=== PATIENT | female | born 1950 | race Caucasian/White ===

== ENCOUNTER → 2017-10-22 | Outpatient (CLI) | payer BC ==
[~2017-10-22] MED LIST: ATV5 PO; LISI-461 PO; MULT-506 PO; OXYC1TAB3 PO; ZFRODT4 SL
--- NOTE | 2017-10-24 08:13 | MAMMOGRAPHY REPORT ---
BILATERAL DIGITAL SCREENING MAMMOGRAM TOMOSYNTHESIS WITH CAD: 10/22/2017 CLINICAL HISTORY: Routine screening. Patient has no complaints. TECHNIQUE: Breast tomosynthesis in addition to standard 2D mammography was performed. Current study was also evaluated with a Computer Aided Detection (CAD) system. COMPARISON: Comparison is made to exams dated: 09/17/2016 mammogram, 09/11/2016 mammogram, 08/30/2015 mammogram, 07/08/2014 mammogram, 05/03/2013 mammogram, and 04/20/2012 mammogram - [facility] enter. BREAST COMPOSITION: The tissue of both breasts is almost entirely fatty. FINDINGS: There are stable punctate microcalcifications in the left breast. The parenchymal pattern is similar to prior mammograms. No suspicious mass, architectural distortion or cluster of suspicio us microcalcifications is seen. IMPRESSION: ACR BI-RADS CATEGORY 1: NEGATIVE There is no mammographic evidence of malignancy. A 1 year screening mammogram is recommended. The pa tient will receive written notification of the results. Approximately 10% of breast cancers are not detected with mammography. A negative mammographic report should not delay biopsy if a clinically suggestive mass is present. Maribel Triana M.D. ay/:10/22/2017 16:54:19 Data Network Architect: Elizabeth ACEVEDO(J Luis)(Maurice), [facility] letter sent: Normal 1/2 BI-RADS Code: ACR BI-RADS Category 1: Negative
== END | disposition home or self-care (01) ==
LOC: C.MAMM 11:58
PROVIDERS: ATTEND Family Medicine
DX: Z12.31 Encounter for screening mammogram for malignant neoplasm of breast (principal)

== ENCOUNTER 2021-06-15 14:17 | Inpatient (IN) ==
--- NOTE | 2021-06-15 14:44 | Emergency Department Note ---
ED Visit Note This patient was seen in concert with Dr. Oliva and we discussed and agreed upon the history, physical, assessment and plan. See attending's note for details. Resident Activity Tracking Resident Involvement: Resident Care Provided Care Provided: Adult ED
--- NOTE | 2021-06-15 15:03 | Emergency Department Note ---
Impression & Plan Peptic ulcer disease, Epigastric abdominal pain, Hypertension ED Provider Note NAME: CRISTINA WEBSTER AGE: 71 SEX: F ARRIVES VIA: Walk-In INFORMANT: Patient, ED PROVIDER(S): Vel Oliva MD CHIEF COMPLAINT: Abdominal pain to back with nausea. PLAN: Disposition: Admit MEDICAL DECISION MAKING: The patient is a pleasant 71-year-old woman with a past medical history of hypertension, history of left bundle branch block dating back to 2006 or longer who presents emergency department with epigastric pain radiating to her back with associated nausea that began last night. Denies any history of similar symptoms in the past. She denies any history of pattern of acid reflux. She takes ibuprofen every now and then for pain not daily. She denies any regular alcohol use. She denies eating any thing particularly new yesterday. Otherwise patient denies any shortness of breath,, cough, congestion, diarrhea or urinary symptoms. EKG demonstrates left bundle branch block that is similar to prior and no sg arbossa criteria. Chest x-ray negative for acute cardiopulmonary process no free air. WBC, H/H and platelets within normal limits. Chemistry without metabolic acidosis. Electrolytes and LFTs without significant abnormality. Troponin negative/undetectable. Lipase is not elevated. COVID-19 PCR was negative. The patient's hypertension CTA of the chest and abdomen pelvis was performed. There is a negative for acute aortic pathology or PE however does demonstrate "diffuse gastric wall thickening with a focal abnormal collection of gas within the wall of the gastric body", which likely represents a gastric ulceration with a small focus of this gas appears to be extraluminal suggestive of m icroperforation/contained perforation. Resident, Dr. Nieves, reviewed the CT findings with the patient who was feeling better after IV fluid hydration and Pepcid and she was in agreement with plan for admission per surgery recommendations. Resident Nieves also discussed the case with general surgery on- call, Dr. Butler, who evaluated the patient at the bedside and will admit the patient for further management. This patient was managed with the assistance of resident, Dr. Oralia Nieves. I discussed the case with the resident, examined the patient, and confirm the findings and plan as documented in this note. Triage Nursing notes reviewed and agree them. Prior medical records reviewed Vital Signs: reviewed and remarkable for no significant abnormalities Differential diagnosis: Appendicitis, ovarian cyst, ovarian torsion, ectopic , TOA, PID, infections, diverticulitis, UTI, obstruction, mesenteric ischemia, aortic pathology, inflammatory bowel disease, renal colic, PUD, pancreatitis, biliary pathology, hernia, volvulus, constipation, as well as other pathologies. ER treatment provided: See below. Diagnostics interpreted by me: ECG: Normal sinus rhythm, 67 bpm, no ectopy, left bundle branch block, no sgarbossa criteria. Left bundle branch block similar to 2008. Cardiac Monitoring: An order for continuous cardiac monitoring was placed and demonstrated Normal sinus rhythm, 67 bpm, no ectopy. Laboratory studies: See below Imaging studies: See below Consultation(s): General surgery on-call, Dr. Butler. HPI: The patient is a pleasant 71-year-old woman with a past medical history of hypertension, history of left bundle branch block dating back to 2006 or longer who presents emergency department with epigastric pain radiating to her back with associated nausea that began last night. Denies any history of similar symptoms in the past. She denies any history of pattern of acid reflux. She takes ibuprofen every now and then for pain not daily. She denies any regular alcohol use. She denies eating any thing particularly new yesterday. Otherwise patient denies any shortness of breath,, cough, congestion, diarrhea or urinary symptoms. ROS: See above HPI for pertinent positives & negatives. A total of 10 systems reviewed and were otherwise negative. PAST MEDICAL HISTORY:See Below PAST SURGICAL HISTORY:See Below FAMILY HISTORY:See Below SOCIAL HISTORY:See Below HOME MEDICATIONS:See Below ALLERGIES:See Below VITALS:See Below PHYSICAL EXAMINATION: GENERAL: Awake, alert, uncomfortable appearing, in no distress HENT: Normocephalic, atraumatic. Oropharynx with dry mucous membranes and otherwise unremarkable. EYES: Normal conjunctiva. Sclera non-icteric. NECK: Supple. No nuchal rigidity. FROM. No JVD. RESPIRATORY: Clear to auscultation. CARDIAC: Regular rate, normal rhythm. Extremities warm and well perfused. Pulses equal. ABDOMEN: Soft, non-distended. Mild epigastric tenderness to palpation. No rebound or guarding. No masses. RECTAL: Deferred. MUSCULOSKELETAL: Chest examination reveals no tenderness. The back is symmetrical on inspection without obvious abnormality. There is no CVA tenderness to palpation. No joint edema. LOWER EXTREMITIES: Calves are equal size bilaterally and non-tender. No edema. N o discoloration. NEURO: Normal sensorium. No sensory or motor deficits noted. SKIN: No rash or jaundice noted. Vel Oliva MD Past Med/Surg History Medical History Hypertension Left bundle branch block Social History Smoking Status: Never smoker Second Hand Exposure: Yes ( smokes pipe); Do You Dip or Chew Tobacco: No; Hx Alcohol Use: No Hx Substance Use: No Preferred Language: Sinhala Communication Ability: Effective Molder Meat Required: No Beliefs That Will Affect Care: None Current Living Situation: Spouse Other Information That Helps Us Care for You: No Feels Safe at Home: Yes Safety Concerns: Feels Safe At This Time Assistive Devices: Glasses Allergies Allergies Allergy/AdvReac Type Severity Reaction Status Date / Time latex Allergy Intermediate Rash Unverified 06/15/21 19:09 Penicillins Allergy Mild Unknown Unverified 06/15/21 19:09 seafood Allergy Severe Anaphylaxis Uncoded 06/15/21 19:09 Home Meds Home Medications Medication Instructions Recorded Confirmed albuterol sulfate 90 mcg/actuation 2 puff INHALATION QID PRN 06/15/21 06/15/21 aerosol inhaler calcium 500 mg tablet 500 mg PO QAM 06/15/21 06/15/21 lisinopril 20 mg tablet 20 mg PO QAM 06/15/21 06/15/21 turmeric 400 mg capsule 400 mg PO QAM 06/15/21 06/15/21 Results & Data (ED) Vital Signs Vital Signs - 24 hr 06/15/21 14:21 06/15/21 16:04 06/15/21 18:00 Temperature 36.2 C L Temperature Source Temporal Artery Scan Pulse Rate 77 Pulse Rate [Apical] 56 L 71 Respiratory Rate 20 18 18 Respiratory Effort / Characteristics Non-Labored Spontaneous Non-Labored Non-Labored Respiratory Depth Normal Normal Normal Respiratory Pattern Regular Blood Pressure 191/97 H Blood Pressure [Left Arm] 176/86 H 168/104 H Blood Pressure Mean 128 Blood Pressure Mean [Left Arm] 116 125 Blood Pressure Position Sitting Pulse Oximetry 99 97 98 Oxygen Delivery Method Room Air Room Air Room Air Sepsis Recent Fever Within 48 Hours No Sepsis New/Unexplained Change in Mental Status N/A Sepsis Action Taken by Nursing No Action Required Laboratory Data Attestation: I reviewed the patient's lab results. Result diagrams: 06/15/21 14:55 06/15/21 14:55 Lab Results 06/15/21 06/15/21 06/15/21 Range/Units 14:55 14:55 15:23 WBC 7.78 (4.8-10.8) K/uL RBC 4.44 (4.2-5.4) M/uL Hgb 13.7 (12.0-16.0) g/dL Hct 41.1 (37-47) % MCV 92.6 (80-100) fL MCH 30.9 (25-34) pg MCHC 33.3 (32-36) g/dL RDW Std Deviation 46.7 H (36.4-46.3) fL RDW Coeff of Lenore 13.8 (11.5-14.5) % Plt Count 287 (130-400) K/uL MPV 9.3 (7.4-10.4) fL Immature Gran % (Auto) 0.0 % Neut % (Auto) 86.7 % Lymph % (Auto) 9.1 % [place] % (Auto) 3.6 % Eos % (Auto) 0.3 % Baso % (Auto) 0.3 % Neut # (Auto) 6.75 H (1.4-6.5) K/uL Lymph # (Auto) 0.71 L (1.2-3.4) K/uL [place] # (Auto) 0.28 (0.11-0.59) K/uL Eos # (Auto) 0.02 (0-0.5) K/uL Baso # (Auto) 0.02 (0-0.2) K/uL Immature Gran # (Auto) 0.00 (0.00-0.02) K/uL Sodium 138 (136-145) mmol/L Potassium 4.1 (3.5-5.1) mmol/L Chloride 105 (98-107) mmol/L Carbon Dioxide 28 (21-32) mmol/L Anion Gap 6.0 (3-11) BUN 18 (7-18) mg/dl Creatinine 0.97 (0.6-1.2) mg/dl Est Cr Clr Drug Dosing 40.9 ml/min Est GFR ( Amer) 67.2 ml/min Est GFR (Non-Af Amer) 57.9 ml/min BUN/Creatinine Ratio 18.1 (10-20) Glucose 116 H (70-99) mg/dl Calcium 9.0 (8.5-10.1) mg/dl Phosphorus 2.9 (2.5-4.9) mg/dl Magnesium 2.1 (1.8-2.4) mg/dl Total Bilirubin 0.5 (0.2-1) mg/dl AST 29 (15-37) U/L ALT 32 (12-78) U/L Alkaline Phosphatase 41 L (45-117) U/L Troponin I < 0.015 (0-0.045) ng/ml Total Protein 6.8 (6.4-8.2) gm/dl Albumin 3.6 (3.4-5.0) gm/dl Globulin 3.2 (2.5-4.0) gm/dl Albumin/Globulin Ratio 1.1 (0.9-2) Lipase 138 (73-393) U/L Specimen Hemolysis COVID-19 Eval Order Covid19 at [facility] SARS-CoV-2 (PCR) (Negative) 06/15/21 Range/Units 15:23 WBC (4.8-10.8) K/uL RBC (4.2-5.4) M/uL Hgb (12.0-16.0) g/dL Hct (37-47) % MCV (80-100) fL MCH (25-34) pg MCHC (32-36) g/dL RDW Std Deviation (36.4-46.3) fL RDW Coeff of Lenore (11.5-14.5) % Plt Count (130-400) K/uL MPV (7.4-10.4) fL Immature Gran % (Auto) % Neut % (Auto) % Lymph % (Auto) % [place] % (Auto) % Eos % (Auto) % Baso % (Auto) % Neut # (Auto) (1.4-6.5) K/uL Lymph # (Auto) (1.2-3.4) K/uL [place] # (Auto) (0.11-0.59) K/uL Eos # (Auto) (0-0.5) K/uL Baso # (Auto) (0-0.2) K/uL Immature Gran # (Auto) (0.00-0.02) K/uL Sodium (136-145) mmol/L Potassium (3.5-5.1) mmol/L Chloride (98-107) mmol/L Carbon Dioxide (21-32) mmol/L Anion Gap (3-11) BUN (7-18) mg/dl Creatinine (0.6-1.2) mg/dl Est Cr Clr Drug Dosing ml/min Est GFR ( Amer) ml/min Est GFR (Non-Af Amer) ml/min BUN/Creatinine Ratio (10-20) Glucose (70-99) mg/dl Calcium (8.5-10.1) mg/dl Phosphorus (2.5-4.9) mg/dl Magnesium (1.8-2.4) mg/dl Total Bilirubin (0.2-1) mg/dl AST (15-37) U/L ALT (12-78) U/L Alkaline Phosphatase (45-117) U/L Troponin I (0-0.045) ng/ml Total Protein (6.4-8.2) gm/dl Albumin (3.4-5.0) gm/dl Globulin (2.5-4.0) gm/dl Albumin/Globulin Ratio (0.9-2) Lipase (73-393) U/L Specimen Hemolysis COVID-19 Eval Order SARS-CoV-2 (PCR) NEGATIVE (Negative) Administered Medications Lactated Ringer's (Lr) 1,000 mls @ 80 mls/hr IV .[id number] ROLANDO Stop: 07/15/21 19:49 Last Admin: 06/15/21 20:52 Dose: 80 mls/hr Documented by: [id number] Levofloxacin/Dextrose (Levaquin/D5w) 500 mg in 100 mls @ 100 mls/hr IV Q24H ROLANDO Stop: 06/25/21 21:29 Last Infusion: 06/15/21 23:07 Dose: 0 mls/hr Documented by: [id number] Admin: 06/15/21 22:00 Dose: 100 mls/hr Documented by: [id number] Pantoprazole Sodium 40 mg/ (Syringe) 10 mls @ 5 mls/min IV BID ROLANDO Stop: 07/15/21 20:59 Last Admin: 06/15/21 20:52 Dose: 5 mls/min Documented by: [id number] Lisinopril (Lisinopril 10 Mg Tab) 10 mg PO DAILY ROLANDO Stop: 07/15/21 19:49 Last Admin: 06/15/21 20:51 Dose: 10 mg Documented by: [id number] Ondansetron HCl (Ondansetron Inj 2 Mg/Ml 2 Ml Vial) 4 mg IV Q4H PRN PRN Reason: Nausea And Vomiting Stop: 07/15/21 19:49 Last Admin: 06/15/21 20:53 Dose: 4 mg Documented by: [id number] Discontinued Medications Sodium Chloride (Nss 1000ml) 1,000 mls @ 999 mls/hr IV .Q1H1M ONE Stop: 06/15/21 16:05 Last Infusion: 06/15/21 16:33 Dose: 0 mls/hr Documented by: [id number] Admin: 06/15/21 15:18 Dose: 999 mls/hr Documented by: [id number] Famotidine (Pepcid 20mg Iv Push) 20 mg in 5 mls @ 2.5 mls/min IV NOW STA Stop: 06/15/21 15:35 Last Admin: 06/15/21 15:40 Dose: 2.5 mls/min Documented by: [id number] Ioversol (Optiray 320 125ml) 116 ml IV ONCE ONE Stop: 06/15/21 16:15 Last Admin: 06/15/21 16:15 Dose: 116 ml Documented by: [id number] Metoclopramide HCl (Metoclopramide Hcl Inj 5 Mg/Ml 2 Ml Vial) 5 mg IV ONE ONE Stop: 06/15/21 15:35 Last Admin: 06/15/21 15:40 Dose: 5 mg Documented by: [id number] Imaging Data Radiologist's Impression: Chest X-Ray 06/15/21 14:40 XR chest 1V portable CLINICAL HISTORY: epigastric pain COMPARISON STUDY: 11/06/2007 FINDINGS: The cardiac and mediastinal contours are normal. There is no evidence of focal pulmonary consolidation. A linear opacity at the left lung base is felt to represent subsegmental atelectasis/scarring. There is no evidence of failure. No pleural effusions are visualized.[No free intraperitoneal air is visualized. There is a mild thoracolumbar scoliosis. IMPRESSION: No active disease in the chest. ACT 112: Negative or not required by law. Electronically signed by: Ruben Payton M.D. 06/15/2021 3:12 PM Chest CTA 06/15/21 15:32 CT ANGIOGRAPHY OF THE CHEST DISSECTION PROTOCOL CLINICAL HISTORY: Epigastric pain. COMPARISON STUDY: Chest radiograph June 15, 2021. TECHNIQUE: Before and following the IV administration of 116 mL of Optiray, helical axial images of the chest were obtained. Maximal intensity projections and sagittal and coronal reformats were viewed on an independent 3D workstation. IV contrast was administered without complication. Automated exposure control was utilized for the study. A dose lowering technique was utilized adhering to the principles of ALARA. FINDINGS: The caliber of the thoracic aorta is normal. There is no intramural hematoma. No thoracic aortic dissection. The size of the heart is normal. There is no pericardial effusion. No pulmonary emboli are identified. There is no consolidation to suggest pneumonia. No pneumothorax or pleural effusion is noted. Linear opacities reflect atelectasis. There are few small bilateral lower lobe pulmonary nodules, including a 5 mm right lower lobe nodule on image 195 of 325. There is a 3 mm left lower lobe nodule image 214. Abdomen and pelvis will be reported separate. Note is made of wall thickening of the gastric body and antrum better depicted on that exam. There is a gas containing focus within the anterior wall of the gastric body which favors an ulcer with possible contained perforation. There is adjacent infiltration and fluid. Right hepatic lobe cyst is noted. IMPRESSION: 1. No thoracic aortic dissection. 2. No acute process within the chest. 3. Several small bilateral lower lobe pulmonary nodules. These are likely benign. A follow-up chest CT in 6 months to ensure stability is recommended. 4. Gastric wall thickening suggestive of gastritis. Associated defect within the anterior wall of the gastric body favors an ulcer with possible contained perforation. These findings are better depicted on the CTA of the abdomen and pelvis will be reported separately. ACT 112: Negative or not required by law. Electronically signed by: Tay Olivas M.D. 06/15/2021 4:34 PM Abdomen/Pelvis CTA 06/15/21 15:52 CT angio abdomen pelvis w con HISTORY: epigastric pain, rule out dissection TECHNIQUE: Multiaxial CT images of the abdomen and pelvis were performed following the intravenous administration of 116 cc of Optiray 320 to evaluate the abdominal aorta. Maximal intensity projection images were also obtained. COMPARISON STUDY: None. FINDINGS: Moderate disc space narrowing at L5-S1. No fractures within the visualized osseous structures. Diffuse thickening of gastric wall with a focal abnormal collection of gas within the gastric body best seen image 71. This focus of gas measures 1.5 cm and favors a gastric ulceration with a probable small contained perforation. The focus of gas on image 67 appears to be extraluminal. There is mild inflammatory change at the greater curvature of the stomach within the left upper quadrant. A 1.7 cm hypodense lesion within the posterior segment of the right hepatic lobe. This favors a cyst. The gallbladder is unremarkable. Trace subhepatic fluid is noted. The pancreas, spleen, and adrenal glands are unremarkable. The kidneys enhance normally. No hydronephrosis. No retroperitoneal lymphadenopathy. The bladder and uterus are unremarkable. Bilateral tubal ligation clips are noted. Colonic diverticulosis. No evidence for acute diverticulitis. No evidence for bowel obstruction. The visualized appendix is unremarkable. The abdominal aorta, celiac artery, superior mesenteric artery, inferior mesenteric artery, iliac arteries, and bilateral renal arteries are widely patent. No evidence for dissection or aneurysm. IMPRESSION: 1. Diffuse gastric wall thickening with a focal abnormal collection of gas within the wall of the gastric body as described above. This likely represents a gastric ulceration. A small focus of this gas appears to be extraluminal and therefore favors a microperforation/contained perforation. Surgical consultation recommended. 2. No evidence for an aortic dissection. ACT 112: Negative or not required by law. Electronically signed by: Milton Means M.D. 06/15/2021 4:36 PM Discharge Plan Visit Data Chief Complaint: GI Assessment Stated Complaint: UPPER ABD PAIN STARTING INTO BACK,NAUSEA,GAGGING ED Provider: Vel Oliva ED Midlevel Provider: Oralia Nieves Discharge Problem: Peptic ulcer disease, Epigastric abdominal pain, Hypertension Patient Disposition: Admitted As Inpatient Discharge Instructions Interventions: ED Discharge Assessment Last Done: 06/15/21 19:22
[2021-06-15] MEDS ORDERED: SODIUM CHLORIDE 0.9% 1000ML 1,000 ML IV ONE (15:05)
[2021-06-15 15:06] LABS: Basophils # (auto) 0.02 K/uL (0-0.2); Basophils % (auto) 0.3 %; Eosinophils # (auto) 0.02 K/uL (0-0.5); Eosinophils % (auto) 0.3 %; Hematocrit (blood only) 41.1 % (37-47); Hemoglobin 13.7 g/dL (12.0-16.0); Lymphocytes # (auto) 0.71 K/uL (1.2-3.4); Lymphocytes % (auto) 9.1 %; Mean Corpuscular Hemoglobin 30.9 pg (25-34); Mean Corpuscular Hgb Conc 33.3 g/dL (32-36); Mean Corpuscular Volume 92.6 fL (80-100); Mean Platelet Volume 9.3 fL (7.4-10.4); Monocytes # (auto) 0.28 K/uL (0.11-0.59); Monocytes % (auto) 3.6 %; Neutrophils # (auto) 6.75 K/uL (1.4-6.5); Neutrophils % (auto) 86.7 %; Platelet Count 287 K/uL (130-400); RDW Coefficient of Variation 13.8 % (11.5-14.5); RDW Standard Deviation 46.7 fL (36.4-46.3); Red Blood Count 4.44 M/uL (4.2-5.4); White Blood Count 7.78 K/uL (4.8-10.8)
--- NOTE | 2021-06-15 15:14 | XRay Report ---
XR chest 1V portable CLINICAL HISTORY: epigastric pain COMPARISON STUDY: 11/06/2007 FINDINGS: The cardiac and mediastinal contours are normal. There is no evidence of focal pulmonary co nsolidation. A linear opacity at the left lung base is felt to represent subsegmental atelectasis/sca rring. There is no evidence of failure. No pleural effusions are visualized.[No free intraperitoneal air is visualized. There is a mild thoracolumbar scoliosis. IMPRESSION: No active disease in the chest. ACT 112: Negative or not required by law. Electronically signed by: Ruben Payton M.D. 06/15/2021 3:12 PM
[2021-06-15 15:28] LABS: Alanine Aminotransferase 32 U/L (12-78); Albumin Level 3.6 gm/dl (3.4-5.0); Aspartate Aminotransferase 29 U/L (15-37); BUN Creatinine Ratio 18.1 (10-20); Blood Urea Nitrogen 18 mg/dl (7-18); Carbon Dioxide 28 mmol/L (21-32); Chloride 105 mmol/L (98-107); Creatinine Clr Calc Pharmacy 40.9 ml/min; Est GFR (African American) 67.2 ml/min; Est GFR (Non-African American) 57.9 ml/min; Glucose 116 mg/dl (70-99); Lipase 138 U/L (73-393); Magnesium 2.1 mg/dl (1.8-2.4); Potassium 4.1 mmol/L (3.5-5.1); Sodium 138 mmol/L (136-145)
[2021-06-15] MEDS ORDERED: METOCLOPRAMIDE HCL INJ 5 MG/ML 2 ML VIAL IV ONE (15:34)
[2021-06-15] MEDS ORDERED: FAMOTIDINE 20MG IV PUSH 20 MG/5 ML SYR IV STA (15:34)
[2021-06-15 15:35] LABS: Albumin Globulin Ratio 1.1 (0.9-2); Alkaline Phosphatase 41 U/L (45-117); Bilirubin,Total 0.5 mg/dl (0.2-1); Globulin 3.2 gm/dl (2.5-4.0); Phosphorus 2.9 mg/dl (2.5-4.9); Total Protein 6.8 gm/dl (6.4-8.2); Troponin I < 0.015 ng/ml (0-0.045)
[2021-06-15] MEDS ORDERED: OPTIRAY 320 125ml IV ONE (16:14)
--- NOTE | 2021-06-15 16:36 | CT Scan Report ---
CT ANGIOGRAPHY OF THE CHEST DISSECTION PROTOCOL CLINICAL HISTORY: Epigastric pain. COMPARISON STUDY: Chest radiograph June 15, 2021. TECHNIQUE: Before and following the IV administration of 116 mL of Optiray, helical axial images of t he chest were obtained. Maximal intensity projections and sagittal and coronal reformats were viewed on an independent 3D workstation. IV contrast was administered without complication. Automated exp osure control was utilized for the study. A dose lowering technique was utilized adhering to the [facility] NASIR. FINDINGS: The caliber of the thoracic aorta is normal. There is no intramural hematoma. No thoracic aortic dissection. The size of the heart is normal. There is no pericardial effusion. No pulmonary em boli are identified. There is no consolidation to suggest pneumonia. No pneumothorax or pleural effus ion is noted. Linear opacities reflect atelectasis. There are few small bilateral lower lobe pulmonar y nodules, including a 5 mm right lower lobe nodule on image 195 of 325. There is a 3 mm left lower l obe nodule image 214. Abdomen and pelvis will be reported separate. Note is made of wall thickening o f the gastric body and antrum better depicted on that exam. There is a gas containing focus within th e anterior wall of the gastric body which favors an ulcer with possible contained perforation. There is adjacent infiltration and fluid. Right hepatic lobe cyst is noted. IMPRESSION: 1. No thoracic aortic dissection. 2. No acute process within the chest. 3. Several small bilateral lower lobe pulmonary nodules. These are likely benign. A follow-up chest C T in 6 months to ensure stability is recommended. 4. Gastric wall thickening suggestive of gastritis. Associated defect within the anterior wall of the gastric body favors an ulcer with possible contained perforation. These findings are better depicted on the CTA of the abdomen and pelvis will be reported separately. ACT 112: Negative or not required by law. Electronically signed by: Tay Olivas M.D. 06/15/2021 4:34 PM
--- NOTE | 2021-06-15 16:38 | CT Scan Report ---
CT angio abdomen pelvis w con HISTORY: epigastric pain, rule out dissection TECHNIQUE: Multiaxial CT images of the abdomen and pelvis were performed following the intravenous ad ministration of 116 cc of Optiray 320 to evaluate the abdominal aorta. Maximal intensity projection i mages were also obtained. COMPARISON STUDY: None. FINDINGS: Moderate disc space narrowing at L5-S1. No fractures within the visualized osseous structur es. Diffuse thickening of gastric wall with a focal abnormal collection of gas within the gastric bod y best seen image 71. This focus of gas measures 1.5 cm and favors a gastric ulceration with a probab le small contained perforation. The focus of gas on image 67 appears to be extraluminal. There is mil d inflammatory change at the greater curvature of the stomach within the left upper quadrant. A 1.7 c m hypodense lesion within the posterior segment of the right hepatic lobe. This favors a cyst. The ga llbladder is unremarkable. Trace subhepatic fluid is noted. The pancreas, spleen, and adrenal glands are unremarkable. The kidneys enhance normally. No hydronephrosis. No retroperitoneal lymphadenopathy . The bladder and uterus are unremarkable. Bilateral tubal ligation clips are noted. Colonic divertic ulosis. No evidence for acute diverticulitis. No evidence for bowel obstruction. The visualized appen chapito is unremarkable. The abdominal aorta, celiac artery, superior mesenteric artery, inferior mesenteric artery, iliac art eries, and bilateral renal arteries are widely patent. No evidence for dissection or aneurysm. IMPRESSION: 1. Diffuse gastric wall thickening with a focal abnormal collection of gas within the wall of the gas tric body as described above. This likely represents a gastric ulceration. A small focus of this gas appears to be extraluminal and therefore favors a microperforation/contained perforation. Surgical co nsultation recommended. 2. No evidence for an aortic dissection. ACT 112: Negative or not required by law. Electronically signed by: Milton Means M.D. 06/15/2021 4:36 PM
--- NOTE | 2021-06-15 17:51 | History & Physical Report ---
Date of Service June 15, 2021 Assessment & Plan (1) Peptic ulcer disease: Plan: 71 yr old woman with likely NSAID induced gastric ulcer with microperforation. Clinically stable with normal WBC ct, no pain, benign abdominal exam. Explained that she is likely to seal this perforation on her own (if not already sealed). Will admit with plan of bowel rest, IV PPI, IV antibiotics. If stays stable, will check gastrograffin swallow in 48 hrs and then start feeding if normal. If worsens, may need exp lap and repair of ulcer. Will need GI consult for outpatient endoscopy. All discussed with patient and she is comfortable with the plan. Present on Admission?: Yes History of Present Illness Chief Complaint: abdominal pain Primary Care Provider: Quang Tomlin MD 71 yr old woman who presents to ER with 1 day of upper abdominal pain. Awoke around 3 am with nausea. Then started with intermittent waves of cramping, squeezing pain in the upper abdomen. 5-6/10 in severity. - No diarrhea or change in bowel habits. Had decreased appetite and only had a few crackers for lunch. Pain persisted and started to radiate to back and this brought her to ER. No similar episodes. Currently, pain is 0/10- received reglan and pepcid in ER. She has been taking advil for a few months. About 8 months ago, had neck pain and was taking 4-6 Advil/ day. As the neck pain improved, she decreased this to 3 advil every 4-5 days. No history of reflux disease. Allergies Allergy/AdvReac Type Severity Reaction Status Date / Time Penicillins Allergy Mild Unverified 01/05/10 02:52 Home Medications Medication Instructions Recorded Confirmed Type Lisinopril (Zestril) 10 mg PO DAILY #0 12/11/08 History Lorazepam (Ativan *) 0.5 mg PO Q6HR PRN #10 12/11/08 Rx Multivitamin 1 tab PO DAILY #0 12/11/08 History Ondansetron (Zofran Odt *) 4 mg SUBLINGUAL Q6HR PRN #4 12/11/08 Rx Oxycodone Ir (Roxicodone Ir) 1 - 2 tab PO Q4HR PRN #12 12/11/08 Rx Past Med/Surg History Social History Smoking Status: Never smoker Feels Safe at Home: Yes Review of Systems Review of Systems: All systems reviewed & are unremarkable except as noted in HPI & below Physical Exam Constitutional: WD/WN, vitals as above Eyes: PERRL, conjunctivae normal, anicteric sclerae ENMT: external ear and nose normal, oropharynx normal Neck: normal visual inspection and trachea midline Respiratory: normal respiratory effort, lungs clear to auscultation Cardiovascular: RRR, no murmur, no edema Gastrointestinal (Abdomen): Inspection/Auscultation: abdomen normal to inspection and normal bowel sounds; abdomen not distended and no visible herniation Percussion/Palpation: abdomen soft; abdomen nontender and no guarding Musculoskeletal: no cyanosis or clubbing, extremities motor strength 5/5 Skin: no rashes, warm and dry Neurologic: CN's II-XI intact bilaterally and awake Psychiatric: A+Ox3, euthymic affect Results & Data Results & Data ([facility]) Vital Signs (Past 12 Hours) Vital Signs Temp Pulse Pulse Resp BP BP Pulse Ox 06/15/21 16:04 56 L 18 176/86 H 97 06/15/21 14:21 36.2 C L 77 20 191/97 H 99 Laboratory Results 06/15/21 06/15/21 06/15/21 Range/Units 15:23 15:23 14:55 WBC (4.8-10.8) K/uL RBC (4.2-5.4) M/uL Hgb (12.0-16.0) g/dL Hct (37-47) % MCV (80-100) fL MCH (25-34) pg MCHC (32-36) g/dL RDW Std Deviation (36.4-46.3) fL RDW Coeff of Lenore (11.5-14.5) % Plt Count (130-400) K/uL MPV (7.4-10.4) fL Immature Gran % (Auto) % Neut % (Auto) % Lymph % (Auto) % Desha % (Auto) % Eos % (Auto) % Baso % (Auto) % Neut # (Auto) (1.4-6.5) K/uL Lymph # (Auto) (1.2-3.4) K/uL Desha # (Auto) (0.11-0.59) K/uL Eos # (Auto) (0-0.5) K/uL Baso # (Auto) (0-0.2) K/uL Immature Gran # (Auto) (0.00-0.02) K/uL Sodium 138 (136-145) mmol/L Potassium 4.1 (3.5-5.1) mmol/L Chloride 105 (98-107) mmol/L Carbon Dioxide 28 (21-32) mmol/L Anion Gap 6.0 (3-11) BUN 18 (7-18) mg/dl Creatinine 0.97 (0.6-1.2) mg/dl Est Cr Clr Drug Dosing 40.9 ml/min Est GFR ( Amer) 67.2 ml/min Est GFR (Non-Af Amer) 57.9 ml/min BUN/Creatinine Ratio 18.1 (10-20) Glucose 116 H (70-99) mg/dl Calcium 9.0 (8.5-10.1) mg/dl Phosphorus 2.9 (2.5-4.9) mg/dl Magnesium 2.1 (1.8-2.4) mg/dl Total Bilirubin 0.5 (0.2-1) mg/dl AST 29 (15-37) U/L ALT 32 (12-78) U/L Alkaline Phosphatase 41 L (45-117) U/L Troponin I < 0.015 (0-0.045) ng/ml Total Protein 6.8 (6.4-8.2) gm/dl Albumin 3.6 (3.4-5.0) gm/dl Globulin 3.2 (2.5-4.0) gm/dl Albumin/Globulin Ratio 1.1 (0.9-2) Lipase 138 (73-393) U/L Specimen Hemolysis COVID-19 Eval Order Covid19 at [facility] SARS-CoV-2 (PCR) NEGATIVE (Negative) 06/15/21 Range/Units 14:55 WBC 7.78 (4.8-10.8) K/uL RBC 4.44 (4.2-5.4) M/uL Hgb 13.7 (12.0-16.0) g/dL Hct 41.1 (37-47) % MCV 92.6 (80-100) fL MCH 30.9 (25-34) pg MCHC 33.3 (32-36) g/dL RDW Std Deviation 46.7 H (36.4-46.3) fL RDW Coeff of Lenore 13.8 (11.5-14.5) % Plt Count 287 (130-400) K/uL MPV 9.3 (7.4-10.4) fL Immature Gran % (Auto) 0.0 % Neut % (Auto) 86.7 % Lymph % (Auto) 9.1 % Desha % (Auto) 3.6 % Eos % (Auto) 0.3 % Baso % (Auto) 0.3 % Neut # (Auto) 6.75 H (1.4-6.5) K/uL Lymph # (Auto) 0.71 L (1.2-3.4) K/uL Desha # (Auto) 0.28 (0.11-0.59) K/uL Eos # (Auto) 0.02 (0-0.5) K/uL Baso # (Auto) 0.02 (0-0.2) K/uL Immature Gran # (Auto) 0.00 (0.00-0.02) K/uL Sodium (136-145) mmol/L Potassium (3.5-5.1) mmol/L Chloride (98-107) mmol/L Carbon Dioxide (21-32) mmol/L Anion Gap (3-11) BUN (7-18) mg/dl Creatinine (0.6-1.2) mg/dl Est Cr Clr Drug Dosing ml/min Est GFR ( Amer) ml/min Est GFR (Non-Af Amer) ml/min BUN/Creatinine Ratio (10-20) Glucose (70-99) mg/dl Calcium (8.5-10.1) mg/dl Phosphorus (2.5-4.9) mg/dl Magnesium (1.8-2.4) mg/dl Total Bilirubin (0.2-1) mg/dl AST (15-37) U/L ALT (12-78) U/L Alkaline Phosphatase (45-117) U/L Troponin I (0-0.045) ng/ml Total Protein (6.4-8.2) gm/dl Albumin (3.4-5.0) gm/dl Globulin (2.5-4.0) gm/dl Albumin/Globulin Ratio (0.9-2) Lipase (73-393) U/L Specimen Hemolysis COVID-19 Eval Order SARS-CoV-2 (PCR) (Negative) Diagnostic Findings CT angio scan abd/ pelvis: FINDINGS: Moderate disc space narrowing at L5-S1. No fractures within the visualized osseous structures. Diffuse thickening of gastric wall with a focal abnormal collection of gas within the gastric body best seen image 71. This focus of gas measures 1.5 cm and favors a gastric ulceration with a probable small contained perforation. The focus of gas on image 67 appears to be extraluminal. There is mild inflammatory change at the greater curvature of the stomach within the left upper quadrant. A 1.7 cm hypodense lesion within the posterior segment of the right hepatic lobe. This favors a cyst. The gallbladder is unremarkable. Trace subhepatic fluid is noted. The pancreas, spleen, and adrenal glands are unremarkable. The kidneys enhance normally. No hydronephrosis. No retroperitoneal lymphadenopathy. The bladder and uterus are unremarkable. Bilateral tubal ligation clips are noted. Colonic d iverticulosis. No evidence for acute diverticulitis. No evidence for bowel obstruction. The visualized appendix is unremarkable. The abdominal aorta, celiac artery, superior mesenteric artery, inferior mesenteric artery, iliac arteries, and bilateral renal arteries are widely patent. No evidence for dissection or aneurysm. IMPRESSION: 1. Diffuse gastric wall thickening with a focal abnormal collection of gas within the wall of the gastric body as described above. This likely represents a gastric ulceration. A small focus of this gas appears to be extraluminal and therefore favors a microperforation/contained perforation. Surgical consultation recommended. 2. No evidence for an aortic dissection.
[2021-06-15] MEDS ORDERED: MoRPHine SULFATE 2 MG/ML CARP IV PRN ×2 (19:50→19:59)
[2021-06-15] MEDS: lisinopril 10 MG TAB PO SCH (20:51)
[2021-06-15] MEDS: LACTATED RINGER'S 1,000 ML IV SCH (20:52)
[2021-06-15] MEDS: PANTOprazole 40 MG in SYRINGE 0 ML IV SCH (20:52)
[2021-06-15] MEDS: ONDANSETRON INJ 2 MG/ML 2 ML VIAL IV PRN (20:53)
[2021-06-15] MEDS: levoFLOXacin/D5W 500 MG/100 ML BAG IV SCH (22:00)
[2021-06-16] MEDS: lisinopril 10 MG TAB PO SCH (08:21)
[2021-06-16] MEDS: PANTOprazole 40 MG in SYRINGE 0 ML IV SCH ×2 (08:21→20:41)
[2021-06-16] MEDS ORDERED: ACETAMINOPHEN 325 MG TAB PO PRN (09:27)
--- NOTE | 2021-06-16 09:33 | Surgery Progress Note ---
Date of Service June 16, 2021 Assessment & Plan (1) Peptic ulcer disease: Plan: 71 yr old woman with likely NSAID induced gastric ulcer with microperforation. Clinically stable with normal WBC ct, no pain, benign abdominal exam. Still stable. Will recheck cbc tomorrow. Gastrograffin swallow in 48 hrs (Friday) and then start feeding if normal. If worsens, may need exp lap and repair of ulcer. GI consut placed. Given headache, added PO tylenol. Present on Admission?: Yes Admission and Anticipated Discharge Date Admission Date: June 15, 2021 Subjective Had another bout of crampy pain this morning and had pain meds. Better now. No nausea. Has a headache from no caffeine this morning. Review of Systems Review of Systems: All systems reviewed & are unremarkable except as noted in HPI & below Neurologic: + headache(s) Physical Exam Constitutional: WD/WN, vitals as above Eyes: PERRL, conjunctivae normal, anicteric sclerae ENMT: external ear and nose normal, oropharynx normal Neck: normal visual inspection and trachea midline Respiratory: normal respiratory effort, lungs clear to auscultation Cardiovascular: RRR, no murmur, no edema Gastrointestinal (Abdomen): Inspection/Auscultation: abdomen normal to inspection and normal bowel sounds; abdomen not distended and no visible herniation Percussion/Palpation: + abdomen tender (mild in epigastrium) and abdomen soft; no guarding Musculoskeletal: no cyanosis or clubbing, extremities motor strength 5/5 Skin: no rashes, warm and dry Neurologic: CN's II-XI intact bilaterally and awake Psychiatric: A+Ox3, euthymic affect Results & Data ([facility]) Vital Signs (Past 12 Hours) Vital Signs Temp Pulse Resp BP BP Pulse Ox 06/16/21 08:40 37.1 C 72 18 96 06/16/21 08:12 149/84 H 06/15/21 22:51 36.5 C 63 18 109/69 97
--- NOTE | 2021-06-16 10:17 | Electrocardiogram Report ---
Test Reason : Blood Pressure : / mmHG Vent. Rate : 067 BPM Atrial Rate : 067 BPM P-R Int : 128 ms QRS Dur : 140 ms QT Int : 430 ms P-R-T Axes : 016 -23 156 degrees QTc Int : 454 ms Normal sinus rhythm Left bundle branch block Abnormal ECG When compared with ECG of 06-NOV-2007 20:05, [place] is more leftward Confirmed by Kenji Youngblood ([id number]) on 06/16/2021 10:16:48 AM Referred By: REFERRED SELF Confirmed By:Kenji Youngblood
[2021-06-16] MEDS: LACTATED RINGER'S 1,000 ML IV SCH ×2 (10:18→20:41)
--- NOTE | 2021-06-16 16:21 | Gastrointestinal Consultation ---
Date of Consultation June 16, 2021 Assessment & Plan (1) Epigastric abdominal pain: (2) Perforated gastric ulcer: (3) Abnormal CT scan, stomach: Most likely NSAID induced ulcer with walled off perforation Continue Pantoprazole 40 mg IV BID Will check H. pylori stool Ag now, and if positive will treat Gastrograffin swallow on Friday Will follow clinical course and make further recommendations as needed History of Present Illness Reason for Consultation: Gastric ulcer Attending Physician: Dalia Butler MD History of Present Illness Lissy Mariee is a 71 yo CF who presented to the ER last night with complaints of epigastric pain radiating to the back and nausea. She underwent a CT scan of the chest which showed gastric wall thickening and findings consistent with an ulceration with microperforation. She was seen by Dr. Butler of surgery, given IVF and started on Protonix 40 mg IV BID. At the time I saw her, she continued to complain of Epigastric pain, rated at 5/10 in intensity, radiating to her back, alleviated somewhat with narcotic analgesia. Of note, she states that she has had neck pain for the past 6 months, and has been taking 3-4 Ibuprofen daily, as well as aspirin therapy for relief. She states that she has never had an EGD, and denies any symptoms of heartburn in the past. She states she has never been on acid suppressive therapy at home. She currently feels slightly improved from the time she was admitted, and denies any fevers, chills, nausea, vomiting, hematemesis, melena, or hematochezia. She has no further complaints. Allergies Allergy/AdvReac Type Severity Reaction Status Date / Time latex Allergy Intermediate Rash Unverified 06/15/21 19:09 Penicillins Allergy Mild Unknown Unverified 06/15/21 19:09 seafood Allergy Severe Anaphylaxis Uncoded 06/15/21 19:09 Home Medications Medication Instructions Recorded Confirmed Type albuterol sulfate 90 mcg/actuation 2 puff INHALATION QID PRN 06/15/21 06/15/21 History aerosol inhaler calcium 500 mg tablet 500 mg PO QAM 06/15/21 06/15/21 History lisinopril 20 mg tablet 20 mg PO QAM 06/15/21 06/15/21 History turmeric 400 mg capsule 400 mg PO QAM 06/15/21 06/15/21 History Patient History Medical History Hypertension Left bundle branch block Social History Smoking Status: Never smoker Second Hand Exposure: Yes ( smokes pipe); Do You Dip or Chew Tobacco: No; Hx Alcohol Use: No Hx Substance Use: No Preferred Language: Chinese Communication Ability: Effective Family And Divorce Legal Assistant Required: No Beliefs That Will Affect Care: None Current Living Situation: Spouse Other Information That Helps Us Care for You: No Feels Safe at Home: Yes Safety Concerns: Feels Safe At This Time Assistive Devices: Glasses Review of Systems Review of Systems: All systems reviewed & are unremarkable except as noted in HPI & below Neurologic: + headache(s) Physical Exam Constitutional: WD/WN, vitals as above Eyes: + anicteric sclerae ENMT: external ear and nose normal, oropharynx normal Neck: trachea midline, no thyromegaly Respiratory: normal respiratory effort, lungs clear to auscultation Cardiovascular: RRR, no murmur, no edema Gastrointestinal (Abdomen): Inspection/Auscultation: abdomen normal to inspection and normal bowel sounds; abdomen not distended Percussion/Palpation: + abdomen tender and abdomen soft; no guarding and abdomen not rigid Skin: no rashes Psychiatric: A+Ox3, euthymic affect Results & Data ([facility]) Vital Signs (Past 12 Hours) Vital Signs Temp Pulse Resp BP BP Pulse Ox 06/16/21 16:04 37.7 C H 71 18 169/87 H 96 06/16/21 08:40 37.1 C 72 18 96 06/16/21 08:12 149/84 H PG Care Time/CCT Total # of Minutes Spent Total Time Spent with Patient: Total time spent is greater than 50% in coordination of care (as documented) at patient's floor/unit and/or counseling patient: Coding Level of Care Code 72036 Initial Inpt Care Lvl 3 Diagnoses Epigastric abdominal pain R10.13 Perforated gastric ulcer K25.[address] scan, stomach R93.3
[2021-06-16] MEDS: ONDANSETRON INJ 2 MG/ML 2 ML VIAL IV PRN (20:41)
[2021-06-16] MEDS: levoFLOXacin/D5W 500 MG/100 ML BAG IV SCH (20:41)
[2021-06-17] MEDS: ONDANSETRON INJ 2 MG/ML 2 ML VIAL IV PRN ×2 (05:26→10:17)
[2021-06-17 06:15] LABS: Basophils # (auto) 0.02 K/uL (0-0.2); Basophils % (auto) 0.2 %; Eosinophils # (auto) 0.03 K/uL (0-0.5); Eosinophils % (auto) 0.4 %; Hematocrit (blood only) 30.8 % (37-47); Lymphocytes # (auto) 1.17 K/uL (1.2-3.4); Lymphocytes % (auto) 14.4 %; Mean Corpuscular Hemoglobin 30.1 pg (25-34); Mean Corpuscular Hgb Conc 32.5 g/dL (32-36); Mean Corpuscular Volume 92.8 fL (80-100); Mean Platelet Volume 9.4 fL (7.4-10.4); Monocytes # (auto) 0.49 K/uL (0.11-0.59); Neutrophils # (auto) 6.42 K/uL (1.4-6.5); Platelet Count 232 K/uL (130-400); RDW Coefficient of Variation 13.7 % (11.5-14.5); RDW Standard Deviation 46.5 fL (36.4-46.3); Red Blood Count 3.32 M/uL (4.2-5.4); White Blood Count 8.13 K/uL (4.8-10.8)
[2021-06-17 07:01] LABS: BUN Creatinine Ratio 22.6 (10-20); Calcium 8.4 mg/dl (8.5-10.1); Creatinine Clr Calc Pharmacy 59.1 ml/min; Est GFR (African American) 101.1 ml/min; Est GFR (Non-African American) 87.2 ml/min; Potassium 3.5 mmol/L (3.5-5.1)
--- NOTE | 2021-06-17 09:48 | Surgery Progress Note ---
Date of Service June 17, 2021 Assessment & Plan (1) Peptic ulcer disease: Plan: 71 yr old woman with likely NSAID induced gastric ulcer with microperforation. Clinically stable with normal WBC ct, minimal pain, benign abdominal exam. Still stable. Appreciate GI input. Gastrograffin swallow tomorrow (Friday) and then start feeding if normal. Continue BID protonix. H.pylori check. Encouraged ambulation, OK to have ice chips, warm compress for left upper arm infiltrated IV site OK to shower. Admission and Anticipated Discharge Date Admission Date: June 15, 2021 Subjective Intermittent deep epigastric discomfort - thinks she is hungry. No nausea. Left arm IV infiltrated yesterday. Seen by GI. Awaiting a bowel movement. Mouth feels dry. Physical Exam Constitutional: WD/WN, vitals as above Eyes: PERRL, conjunctivae normal, anicteric sclerae ENMT: external ear and nose normal, oropharynx normal Neck: normal visual inspection and trachea midline Respiratory: normal respiratory effort, lungs clear to auscultation Cardiovascular: RRR, no murmur, no edema Gastrointestinal (Abdomen): Inspection/Auscultation: abdomen normal to inspection and normal bowel sounds; abdomen not distended and no visible herniation Percussion/Palpation: abdomen soft; abdomen nontender (mild in epigastrium) and no guarding Musculoskeletal: no cyanosis or clubbing, extremities motor strength 5/5 Skin: no rashes, warm and dry left upper arm with induration, mild erythema from infiltrated IV Neurologic: CN's II-XI intact bilaterally and awake Psychiatric: A+Ox3, euthymic affect Results & Data ([facility]) Vital Signs (Past 12 Hours) Vital Signs Temp Pulse Resp BP Pulse Ox 06/17/21 07:51 36.8 C 74 18 137/74 96 06/16/21 22:40 37.0 C 71 18 162/80 H 94 Laboratory Results 06/17/21 06/17/21 Range/Units 05:42 05:42 WBC 8.13 (4.8-10.8) K/uL RBC 3.32 L (4.2-5.4) M/uL Hgb 10.0 L D (12.0-16.0) g/dL Hct 30.8 L (37-47) % MCV 92.8 (80-100) fL MCH 30.1 (25-34) pg MCHC 32.5 (32-36) g/dL RDW Std Deviation 46.5 H (36.4-46.3) fL RDW Coeff of Lenore 13.7 (11.5-14.5) % Plt Count 232 (130-400) K/uL MPV 9.4 (7.4-10.4) fL Immature Gran % (Auto) 0.0 % Neut % (Auto) 79.0 % Lymph % (Auto) 14.4 % [place] % (Auto) 6.0 % Eos % (Auto) 0.4 % Baso % (Auto) 0.2 % Neut # (Auto) 6.42 (1.4-6.5) K/uL Lymph # (Auto) 1.17 L (1.2-3.4) K/uL [place] # (Auto) 0.49 (0.11-0.59) K/uL Eos # (Auto) 0.03 (0-0.5) K/uL Baso # (Auto) 0.02 (0-0.2) K/uL Immature Gran # (Auto) 0.00 (0.00-0.02) K/uL Sodium 141 (136-145) mmol/L Potassium 3.5 (3.5-5.1) mmol/L Chloride 108 H (98-107) mmol/L Carbon Dioxide 29 (21-32) mmol/L Anion Gap 4.0 (3-11) BUN 15 (7-18) mg/dl Creatinine 0.67 D (0.6-1.2) mg/dl Est Cr Clr Drug Dosing 59.1 ml/min Est GFR ( Amer) 101.1 ml/min Est GFR (Non-Af Amer) 87.2 ml/min BUN/Creatinine Ratio 22.6 H (10-20) Glucose 86 (70-99) mg/dl Calcium 8.4 L (8.5-10.1) mg/dl
[2021-06-17] MEDS: PANTOprazole 40 MG in SYRINGE 0 ML IV SCH ×2 (10:12→21:57)
[2021-06-17] MEDS: LACTATED RINGER'S 1,000 ML IV SCH ×2 (10:40→22:06)
[2021-06-17] MEDS: lisinopril 20 MG TAB PO SCH (10:41)
[2021-06-17] MEDS: lisinopril 10 MG TAB PO SCH (10:41)
--- NOTE | 2021-06-17 13:47 | Gastroenterology Progress Note ---
Date of Service June 17, 2021 Assessment & Plan (1) Abnormal CT scan, stomach: (2) Epigastric abdominal pain: (3) Perforated gastric ulcer: Plan: CT scan abdomen in AM with Gastrograffin Continue Pantoprazole 40 mg IV BID Continue NPO status Continue supportive care Will follow clinical course and make further recommendations as needed. Admission and Anticipated Discharge Date Admission Date: June 15, 2021 Subjective No improvement overnight. Still with abdominal discomfort and intermittent nausea. She did have a BM, and did note dark and tarry stool. She denies fevers, but has had chills, "off and on." She denies any vomiting, hematemesis, or other complaints. Review of Systems Constitutional: as per Subjective / HPI Eyes: as per Subjective / HPI Ear, Nose, Mouth, Throat: as per Subjective / HPI Respiratory: as per Subjective / HPI Cardiovascular: as per Subjective / HPI Gastrointestinal: as per Subjective / HPI Musculoskeletal: as per Subjective / HPI Integumentary: as per Subjective / HPI Neurologic: as per Subjective / HPI Psychiatric: as per Subjective / HPI Endocrine: as per Subjective / HPI Hematologic / Lymphatic: as per Subjective / HPI Allergy / Immunological: as per Subjective / HPI Physical Exam Constitutional: WD/WN, vitals as above Gastrointestinal (Abdomen): Inspection/Auscultation: abdomen normal to inspection; abdomen not distended Percussion/Palpation: abdomen soft; abdomen nontender, no guarding and abdomen not rigid Psychiatric: A+Ox3, euthymic affect Results & Data Results & Data ([facility]) Vital Signs (Past 12 Hours) Vital Signs Temp Pulse Resp BP Pulse Ox 06/17/21 10:24 36.9 C 06/17/21 07:51 36.8 C 74 18 137/74 96 PG Care Time/CCT Total # of Minutes Spent Total Time Spent with Patient: Total time spent is greater than 50% in coordination of care (as documented) at patient's floor/unit and/or counseling patient: Coding Level of Care Code 53174 Subseq Obs Care Lvl [address] scan, stomach R93.3 Epigastric abdominal pain R10.13 Perforated gastric ulcer K25.5
[2021-06-17 16:03] LABS: Basophils # (auto) 0.02 K/uL (0-0.2); Basophils % (auto) 0.2 %; Eosinophils # (auto) 0.03 K/uL (0-0.5); Eosinophils % (auto) 0.3 %; Hematocrit (blood only) 33.7 % (37-47); Immature Granulocytes # (auto) 0.01 K/uL (0.00-0.02); Immature Granulocytes % (auto) 0.1 %; Lymphocytes # (auto) 1.38 K/uL (1.2-3.4); Lymphocytes % (auto) 15.5 %; Mean Corpuscular Hemoglobin 30.4 pg (25-34); Mean Corpuscular Volume 93.1 fL (80-100); Mean Platelet Volume 9.1 fL (7.4-10.4); Monocytes % (auto) 4.5 %; Neutrophils # (auto) 7.05 K/uL (1.4-6.5); Neutrophils % (auto) 79.4 %; Platelet Count 260 K/uL (130-400); RDW Coefficient of Variation 13.5 % (11.5-14.5); RDW Standard Deviation 46.3 fL (36.4-46.3); Red Blood Count 3.62 M/uL (4.2-5.4); White Blood Count 8.89 K/uL (4.8-10.8)
[2021-06-17 16:11] LABS: Mean Corpuscular Hgb Conc 32.6 g/dL (32-36)
--- NOTE | 2021-06-17 16:22 | CT Scan Report ---
CT OF THE ABDOMEN AND PELVIS WITHOUT CONTRAST CLINICAL HISTORY: gastric ulcer, chills/lightheaded COMPARISON STUDY: CTA of the abdomen and pelvis June 15, 2021. TECHNIQUE: Axial images of the abdomen and pelvis were obtained without IV contrast. Images were revi ewed in the axial, sagittal, and coronal planes. Automated exposure control was utilized for the lucinda dy. A dose lowering technique was utilized adhering to the principles of ALARA. FINDINGS: A trace left pleural effusion is noted. There is subsegmental atelectasis within the lung b ases. Right hepatic dome cyst is noted. There is no biliary or pancreatic ductal dilatation. Evaluati on of the abdomen and pelvis is suboptimal on this unenhanced exam. The spleen, adrenal glands, kidne ys and pancreas are normal. Note is made of thickening of the gastric antrum and to a lesser extent t he gastric body. This has likely slightly decreased since prior CT of June 15, 2021. The suspected ga stric body ulcer shown on that exam is not well visualized on this exam. There is no free air. There is no evidence for a bowel obstruction. There is sigmoid diverticulosis without evidence for acute di verticulitis. IMPRESSION: 1. No free air. Wall thickening of the gastric antrum and gastric body which suggests gastritis. This has slightly decreased since prior CT. Suspected gastric body ulcer on prior CT not well visualized on this exam. 2. Trace left pleural effusion. Subsegmental bibasilar atelectasis. 3. Sigmoid diverticulosis without evidence for acute diverticulitis. ACT 112: Negative or not required by law. Electronically signed by: Tay Olivas M.D. 06/17/2021 4:21 PM
[2021-06-17] MEDS ORDERED: LACTATED RINGER'S 500 ML IV ONE (16:55)
[2021-06-17] MEDS: levoFLOXacin/D5W 500 MG/100 ML BAG IV SCH (21:57)
[2021-06-18] MEDS: lisinopril 20 MG TAB PO SCH (08:16)
[2021-06-18] MEDS: PANTOprazole 40 MG in SYRINGE 0 ML IV SCH ×2 (08:16→20:50)
[2021-06-18] MEDS: ONDANSETRON INJ 2 MG/ML 2 ML VIAL IV PRN (08:16)
--- NOTE | 2021-06-18 08:53 | Fluoroscopy Report ---
FL upper GI series wo air CLINICAL HISTORY: Gastric ulcer. Evaluate for perforation. COMPARISON STUDY: CT of the abdomen and pelvis June 17, 2021. FLUOROSCOPY TIME: 1 minute. FLUOROSCOPIC IMAGES: 18. PROCEDURE AND FINDINGS: A single contrast upper GI series was performed utilizing Optiray. Mucosal de tail is diminished given single contrast technique. No mass or stricture within the esophagus is note d. No hiatal hernia is identified. No reflux was elicited. The suspected gastric ulcer shown on CT is not evident on this exam, likely due to single contrast technique. However, there is no contrast ext ravasation to suggest perforation. Duodenal fold pattern is normal. Caliber of the opacified jejunum is normal. IMPRESSION: 1. No contrast extravasation to suggest gastric perforation. 2. Nonvisualization of the suspected gastric ulcer shown on CT, likely due to single contrast techniq ue. ACT 112: Negative or not required by law. Electronically signed by: Tay Olivas M.D. 06/18/2021 8:52 AM
--- NOTE | 2021-06-18 09:59 | Gastroenterology Progress Note ---
Date of Service June 18, 2021 Assessment & Plan (1) Abnormal CT scan, stomach: (2) Epigastric abdominal pain: (3) Perforated gastric ulcer: Plan: Gastrograffin without evidence of gastric perforation. Continue Pantoprazole 40 mg IV BID. May advance diet to clear liquids. Continue supportive care. Plan for outpatient EGD in 6 weeks. Admission and Anticipated Discharge Date Admission Date: June 15, 2021 Subjective Patient reports minimal tenderness. No nausea or vomiting. No overt GIB symptoms. Hemoglobin is stable at 11.0. The UGI series with gastrograffin was negative for perforation of the gastric ulcer as clinical queried on CT. Review of Systems Constitutional: no fever and no chills Respiratory: no cough and no dyspnea Cardiovascular: no chest pain and no dyspnea on exertion Gastrointestinal: as per Subjective / HPI Physical Exam Constitutional: WD/WN, vitals as above Respiratory: normal respiratory effort, lungs clear to auscultation Cardiovascular: RRR, no murmur, no edema Gastrointestinal (Abdomen): normal bowel sounds, soft, nontender, no hepatosplenomegaly Psychiatric: A+Ox3, euthymic affect Results & Data Results & Data ([facility]) Vital Signs (Past 12 Hours) Vital Signs Temp Pulse Resp BP Pulse Ox 06/18/21 06:36 36.6 C 61 14 149/79 H 97 06/17/21 23:10 37.1 C 72 15 147/78 H 96 Laboratory Results Abnormal lab results 06/17/21 Range/Units 15:56 RBC 3.62 L (4.2-5.4) M/uL Hgb 11.0 L (12.0-16.0) g/dL Hct 33.7 L (37-47) % Neut # (Auto) 7.05 H (1.4-6.5) K/uL PG Care Time/CCT Total # of Minutes Spent Total Time Spent with Patient: Total time spent is greater than 50% in coordination of care (as documented) at patient's floor/unit and/or counseling patient: Coding Level of Care Code 28900 Subseq Hosp Care Lvl [address] scan, stomach R93.3 Epigastric abdominal pain R10.13 Perforated gastric ulcer K25.5
[2021-06-18] MEDS: LACTATED RINGER'S 1,000 ML IV SCH ×2 (10:54→20:50)
--- NOTE | 2021-06-18 13:45 | Progress Note ---
Date of Service June 18, 2021 doing better, no abdominal pain, UGI study- no leak, Assessment & Plan (1) Peptic ulcer disease: Plan: 71 yr old woman with likely NSAID induced gastric ulcer with microperforation. Clinically stable with normal WBC ct, minimal pain, benign abdominal exam. Still stable. Appreciate GI input. Gastrograffin swallow tomorrow (Friday) and then start feeding if normal. Continue BID protonix. H.pylori check. Encouraged ambulation, OK to have ice chips, warm compress for left upper arm infiltrated IV site OK to shower. 06/18/2021 1:44PM Dr. Chandler doing fine, clear diet, then advance diet, possible go home tomorrow, Admission and Anticipated Discharge Date Admission Date: June 15, 2021 Subjective Patient reports minimal tenderness. No nausea or vomiting. No overt GIB symptoms. Hemoglobin is stable at 11.0. The UGI series with gastrograffin was negative for perforation of the gastric ulcer as clinical queried on CT. Review of Systems Neurologic: + headache(s) Physical Exam Constitutional: WD/WN, vitals as above Neck: trachea midline, no thyromegaly Respiratory: normal respiratory effort, lungs clear to auscultation Cardiovascular: RRR, no murmur, no edema Gastrointestinal (Abdomen): soft, NT, ND BS + Neurologic: patellar DTR's 2+ bilat, sensation intact Psychiatric: A+Ox3, euthymic affect Results & Data ([facility]) Vital Signs (Past 12 Hours) Vital Signs Temp Pulse Resp BP Pulse Ox 06/18/21 06:36 36.6 C 61 14 149/79 H 97 Diagnostic Findings UGI study- no leak,
[2021-06-18] MEDS: levoFLOXacin/D5W 500 MG/100 ML BAG IV SCH (20:50)
[2021-06-19] MEDS: LACTATED RINGER'S 1,000 ML IV SCH (07:35)
[2021-06-19] MEDS: lisinopril 20 MG TAB PO SCH (07:35)
[2021-06-19] MEDS: PANTOprazole 40 MG in SYRINGE 0 ML IV SCH (07:35)
--- NOTE | 2021-06-19 11:10 | Gastroenterology Progress Note ---
Date of Service June 19, 2021 Assessment & Plan (1) Abnormal CT scan, stomach: (2) Epigastric abdominal pain: (3) Perforated gastric ulcer: Plan: * Stat H&H due to reported symptoms of dark stools to ensure stability. * Continue Pantoprazole 40 mg BID, continue upon discharge. * Advance diet to soft regular diet as tolerated. * Add Carafate 1 g PO ACHS x 14 days. * If diet is tolerated and H&H is stable, agree with discharge to home per general surgery's discretion with close outpatient follow up next week in our office. * Outpatient EGD in ~6 weeks. Admission and Anticipated Discharge Date Admission Date: June 15, 2021 Supervising Physician Co-Signing Physician Notes Agree with IAIN Larios as above Abd: Soft, NT, ND, +BS Continue Protonix 40mg by mouth twice daily Carafate 1 g by mouth QID AC and HS for 10 days Followup in our office next week EGD in 6 weeks. Subjective Patient without abdominal pain. Tolerated clear liquid diet. Passing some darker stools. Continues BID PPI. Surgery is considering d/c to home today. Review of Systems Constitutional: no fever and no chills Gastrointestinal: as per Subjective / HPI Physical Exam Constitutional: well developed and well nourished Eyes: EOM intact bilaterally Neck: normal visual inspection Respiratory: normal respiratory effort Gastrointestinal (Abdomen): normal bowel sounds, soft, nontender, no hepatosplenomegaly Skin: normal color Psychiatric: A+Ox3, euthymic affect Results & Data Results & Data ([facility]) Vital Signs (Past 12 Hours) Vital Signs Temp Pulse Resp BP Pulse Ox 06/19/21 07:02 36.8 C 69 16 186/83 H 98 PG Care Time/CCT Total # of Minutes Spent Total Time Spent with Patient: Total time spent is greater than 50% in coordination of care (as documented) at patient's floor/unit and/or counseling patient: Coding Level of Care Code 15046 Subseq Hosp Care Lvl [address] scan, stomach R93.3 Epigastric abdominal pain R10.13 Perforated gastric ulcer K25.5
[2021-06-19] MEDS ORDERED: SUCRALFATE 1 GM/10 ML UDC PO SCH (11:30)
[2021-06-19 11:33] LABS: Hematocrit (blood only) 30.7 % (37-47); Hemoglobin 10.2 g/dL (12.0-16.0)
--- NOTE | 2021-06-19 15:12 | Progress Note ---
Date of Service June 19, 2021 pt is doing fine, no abdominal pain, no nausea, no vomiting, Assessment & Plan (1) Peptic ulcer disease: Plan: 71 yr old woman with likely NSAID induced gastric ulcer with microperforation. Clinically stable with normal WBC ct, minimal pain, benign abdominal exam. Still stable. Appreciate GI input. Gastrograffin swallow tomorrow (Friday) and then start feeding if normal. Continue BID protonix. H.pylori check. Encouraged ambulation, OK to have ice chips, warm compress for left upper arm infiltrated IV site OK to shower. 06/18/2021 1:44PM Dr. Chandler doing fine, clear diet, then advance diet, possible go home tomorrow, 06/19/2021 3:10PM Dr. Chandler doing fine, no abdominal pain, tolerated diet, pt can be discharged today, F/U GI doctor, next week, I instructed pt she should come back to ER if she develops abdominal pain, bloody stool weakness, pt understood, I answered all questions, F/U me prn, Admission and Anticipated Discharge Date Admission Date: June 15, 2021 Supervising Physician Co-Signing Physician Notes Agree with IAIN Larios as above Abd: Soft, NT, ND, +BS Continue Protonix 40mg by mouth twice daily Carafate 1 g by mouth QID AC and HS for 10 days Followup in our office next week EGD in 6 weeks. Subjective Patient without abdominal pain. Tolerated clear liquid diet. Passing some darker stools. Continues BID PPI. Surgery is considering d/c to home today. Review of Systems Neurologic: + headache(s) Physical Exam Constitutional: WD/WN, vitals as above Neck: trachea midline, no thyromegaly Respiratory: normal respiratory effort, lungs clear to auscultation Cardiovascular: RRR, no murmur, no edema Gastrointestinal (Abdomen): soft, NT, ND BS + Neurologic: patellar DTR's 2+ bilat, sensation intact Psychiatric: A+Ox3, euthymic affect Results & Data ([place]) Vital Signs (Past 12 Hours) Vital Signs Temp Pulse Resp BP Pulse Ox 06/19/21 07:02 36.8 C 69 16 186/83 H 98 Laboratory Results Abnormal lab results 06/19/21 Range/Units 11:20 Hgb 10.2 L (12.0-16.0) g/dL Hct 30.7 L (37-47) %
--- NOTE | 2021-06-20 10:36 | Discharge Summary (DS) ---
DATE OF ADMISSION: 06/15/2021 DATE OF DISCHARGE: 06/19/2021. ADMISSION DIAGNOSES: Upper GI bleeding gastric ulcer. DISCHARGE DIAGNOSES: Upper gastrointestinal bleeding gastric ulcer. DETAILS OF DISCHARGE SUMMARY: This is 71 years old female who was admitted to the hospital for upper GI bleeding with a gastric ulcer and the patient was admitted to the hospital for conservative treatm ent. Also, the patient had upper GI study and shows no gastric perforation. We gave the patient Adv ance diet. The patient tolerated the diet, no abdominal pain, no nausea, no vomiting and no weakness . PHYSICAL EXAMINATION: VITAL SIGNS: Temperature is 36.8, heart rate is 69, respiratory rate 16, blood pressure 186/83, O2 s aturation 98% on room air. GENERAL: Patient is alert, awake, oriented x3, no distress. HEENT: No more limitation. NEUROLOGIC: Intact. NECK: No JVD. CHEST: Bilateral lung sounds clear. HEART: Normal S1 and S2. No murmur. ABDOMEN: Soft, no tenderness. Bowel sounds positive. EXTREMITIES: No edema. During the hospital stay, the patient's GI doctor treated with IV Protonix and the patient is doing f ine otherwise. The patient want to go home today. We gave the patient postop care instruction and a lso GI doctor will follow up the patient next week and repeat upper GI scope in 6 weeks and the GI do ctor saw the patient earlier this morning and they agreed to discharge the patient home. The patient tolerated a regular diet. No nausea, no vomiting. The patient will go home today. We gave the pat ieoc instruction and I will follow up the patient as needed. The patient understands. I answered al olga questions. Job ID: [id number]
== END 2021-06-19 18:02 | disposition home or self-care (01) | DRG 379 ==
LOC: ED 14:17 → 3N 18:04